=== PATIENT | male | born 1950 | race Caucasian/White ===

== ENCOUNTER 2016-04-22 16:16 | Observation (INO) | payer SELFPAY ==
[2016-04-22] MEDS ORDERED: Sodium Chloride 0.9% 10 ML Syringe FLUSH PRN (16:32)
[2016-04-22] MEDS ORDERED: Albuterol/Ipratropium 3.0-0.5 MG/3 ML Neb Soln NEB ONE (16:35)
[2016-04-22] MEDS ORDERED: Famotidine 20 MG/2 ML SDV IVPUSH ONE (16:36)
[2016-04-22] MEDS ORDERED: methylPREDNISolone Sodium Succinate 125 MG/2 ML SDV IVPUSH ONE (16:36)
[2016-04-22] MEDS ORDERED: Sodium Chloride 0.9% 1,000 ML IV SCH (16:45)
[2016-04-22] MEDS ORDERED: Metoprolol Tartrate 5 MG/5 ML SDV IVPUSH ONE (16:55)
[2016-04-22 17:07] LABS: BASOPHILS PERCENT AUTO 0.2 % (0.2-1.2); EOSINOPHILS PERCENT AUTO 0.1 % (0.0-4.0); HEMATOCRIT 43.7 % (40.0-52.0); HEMOGLOBIN 15.9 g/dL (14.0-18.0); LYMPHOCYTES PERCENT AUTO 7.4 % (25.0-50.0); MEAN CORPUSCULAR HEMOGLOBIN 33.1 pg (26.0-32.0); MEAN CORPUSCULAR HGB CONC 36.4 g/dL (32.0-36.0); MONOCYTES PERCENT AUTO 14.2 % (2.0-11.0); NEUTROPHILS PERCENT AUTO 78.1 % (50.0-80.0); RDW CV 12.4 % (10.0-15.0)
[2016-04-22 17:12] LABS: HCO3 ARTERIAL,ISTAT 28 mmol/L (22-26); O2 SATURATION ARTERIAL,ISTAT 94 % (95-98); PCO2 ARTERIAL,ISTAT 37 mmHG (35-45); PH ARTERIAL,ISTAT 7.487 (7.35-7.45); PO2 ARTERIAL,ISTAT 64 mmHG (80-105); TCO2 ARTERIAL,ISTAT 29 mmol/L (23-27)
--- NOTE | 2016-04-22 17:15 | EDM.PDOC ---
ED HISTORY OF PRESENT ILLNESS - General Chief Complaint: Respiratory Problem Stated Complaint: SOB Time Seen by Provider: 04/22/16 16:22 Source of Information: Reports: Patient, Family, RN, RN notes reviewed History Limitations: Reports: No limitations - History of Present Illness INITIAL COMMENTS - FREE TEXT/NARRATIVE: Patient presents to the ED at [facility] with a 2 week history of worsening SOB, dry cough, and diaphoresis. Patient states he has not seen a health care provider in over 20 years. He denies any medical history. Patient denies any chest pain, headaches, dizziness, or edema. He states "I just feel like I can not get my air in." Patient denies any N/V/D. No focal neurological deficits. Symptom Onset Date: 04/07/16 - Related Data Allergies/ADRs: Allergies Allergy/AdvReac Type Severity Reaction Status Date / Time No Known Allergies Allergy Verified 04/22/16 18:35 Home Meds: Home Meds Multivitamin [Daily Multiple Vitamin] 1 tab PO DAILY 04/22/16 [History] Past Medical History - Past Health History Medical/Surgical History: Denies Medical/Surgical History Social & Family History - Family History Family Medical History: Noncontributory - Tobacco Use Smoking Status *Q: Current Every Day Smoker Tobacco Use Within Last Twelve Months: Cigarettes Smoking Cessation Information Provided To Patient: Patient Refused Second Hand Smoke Exposure: Yes Second Hand Smoke Education Provided: Patient Refused - Tobacco Core Measures Tobacco Use/Smoking Within Last 30 Days: Refused Screening - Caffeine Use Caffeine Use: Reports: Coffee - Alcohol Use Alcohol Use History: Yes Days Per Week of Alcohol Use: 7 Number of Drinks Per Day: 18 Total Drinks Per Week: 126 Date of Last Drink: 04/22/16 Alcohol Use in Last Twelve Months: Yes Alcohol Use Frequency: Daily - Recreational Drug Use Recreational Drug Use: No Drug Use in Last 12 Months: No ED ROS GENERAL - Review of Systems Review Of Systems: See Below Constitutional: Reports: diaphoresis. Denies: fever, chills, weakness Respiratory: Reports: shortness of breath, wheezing, cough Cardiovascular: Reports: Dyspnea on exertion. Denies: Chest pain, Palpitations GI/Abdominal: Denies: Abdominal pain, Diarrhea, Nausea, Vomiting Skin: Reports: diaphoresis Neurological: Denies: dizziness, headache, numbness, paresthesia, tingling ED EXAM, GENERAL - Physical Exam Exam: See Below Exam Limited By: No limitations General Appearance: alert, anxious, mild distress Eye Exam: bilateral eye: EOMI, normal inspection, PERRL Ears: normal external exam, normal canal, hearing grossly normal, normal TMs Ear Exam: bilateral ear: TM normal Throat/Mouth: Normal inspection, Normal oropharynx, No airway compromise Neck: supple Respiratory/Chest: decreased breath sounds, crackles, rhonchi, wheezing Cardiovascular: regular rate, rhythm, no murmur, tachycardia Peripheral Pulses: 2+: radial (L), radial (R) GI/Abdominal: normal bowel sounds, soft, non tender Neurological: alert, oriented Skin Exam: Warm, Intact, Normal color, No rash, Diaphoretic EKG INTERPRETATION EKG Date: 04/22/16 Time: 16:27 Rhythm: NSR Rate (beats/min): 100 [place]: normal P-wave: present QRS: RBBB ST-T: normal QT: normal TN/PQ Interval: 0.20 Comparison: NA - no prior EKG EKG Interpretation Comments: 1. Sinus Tachycardia 2. RBBB 3. Possible inferior infarct - age undetermined Course - Vital Signs Last Recorded V/S: Last Vital Signs Temp 37.1 C 04/22/16 18:34 Pulse 79 04/22/16 18:34 Resp 18 04/22/16 18:34 BP 180/80 H 04/22/16 18:34 Pulse Ox 91 L 04/22/16 18:34 - Orders/Labs/Meds Orders: Active Orders 24 hr Category Date Time Status EKG 12 Lead [EKG Documentation Completion] [RC] STAT Care 04/22/16 16:46 Active RT Aerosol Therapy [RC] ASDIRECTED Care 04/22/16 16:36 Active Chest PE [Ang Chest] [CT] Stat Exams 04/22/16 17:26 Taken Sodium Chloride 0.9% [Normal Saline] 1,000 ml Med 04/22/16 16:45 Active IV ASDIRECTED Sodium Chloride 0.9% [Saline Flush] Med 04/22/16 16:32 Active 10 ml FLUSH ASDIRECTED PRN Peripheral IV Insertion Adult [OM.PC] Routine Oth 04/22/16 16:32 Ordered Medication Orders Sodium Chloride (Normal Saline) 1,000 mls @ 999 mls/hr IV ASDIRECTED [facility] Last Admin: 04/22/16 18:21 Dose: 999 mls/hr Sodium Chloride (Saline Flush) 10 ml FLUSH ASDIRECTED PRN PRN Reason: Keep Vein Open Labs: Laboratory Tests 04/22/16 04/22/16 04/22/16 Range/Units 16:40 16:40 16:40 WBC 12.6 H (4.0-10.0) x10^3/uL RBC 4.80 (4.5-6.0) x10^6/uL Hgb 15.9 (14.0-18.0) g/dL Hct 43.7 (40.0-52.0) % MCV 91.0 (78.0-93.0) fL MCH 33.1 H (26.0-32.0) pg MCHC 36.4 H (32.0-36.0) g/dL RDW Coeff of Natanael 12.4 (10.0-15.0) % Plt Count 180 (130-400) x10^3/uL Neut % (Auto) 78.1 (50.0-80.0) % Lymph % (Auto) 7.4 L (25.0-50.0) % [place] % (Auto) 14.2 H (2.0-11.0) % Eos % (Auto) 0.1 (0.0-4.0) % Baso % (Auto) 0.2 (0.2-1.2) % D-Dimer, Quantitative 0.90 H (<=0.58) mg/LFEU POC ABG pH (7.35-7.45) POC ABG pCO2 (35-45) mmHG POC ABG pO2 (80-105) mmHG POC ABG HCO3 (22-26) mmol/L POC ABG Total CO2 (23-27) mmol/L POC ABG O2 Sat (95-98) % POC ABG Base Excess (-2-3) mmol/L POC FiO2 Sodium 133 L (136-145) mmol/L Potassium 2.7 L* (3.5-5.1) mmol/L Chloride 91 L (98-107) mmol/L Carbon Dioxide 29 (21-32) mmol/L BUN 7 (7-18) mg/dL Creatinine 0.5 L (0.70-1.30) mg/dL Est Cr Clr Drug Dosing TNP Estimated GFR (MDRD) > 60 Glucose 115 H (74-106) mg/dL Calcium 8.8 (8.5-10.1) mg/dL Corrected Calcium 9.44 (8.5-10.1) mg/dL Phosphorus 3.1 (2.6-4.7) mg/dL Magnesium 2.1 (1.8-2.4) mg/dL Total Bilirubin 0.5 (0.2-1.0) mg/dL AST 54 H (15-37) U/L ALT 65 H (16-63) U/L Alkaline Phosphatase 101 (46-116) U/L Creatine Kinase 80 (39-308) U/L Creatine Kinase Index 1.8 (0.0-4.0) % CK-MB (CK-2) 1.4 (0.0-3.6) ng/mL Troponin I < 0.017 (<=0.056) ng/mL B-Natriuretic Peptide 472 H (<=125) pg/mL Total Protein 7.5 (6.4-8.2) g/dL Albumin 3.2 L (3.4-5.0) g/dL Globulin 4.3 Albumin/Globulin Ratio 0.74 Ethyl Alcohol 20 H (0-3) mg/dL 04/22/ Range/Units 17:04 WBC (4.0-10.0) x10^3/uL RBC (4.5-6.0) x10^6/uL Hgb (14.0-18.0) g/dL Hct (40.0-52.0) % MCV (78.0-93.0) fL MCH (26.0-32.0) pg MCHC (32.0-36.0) g/dL RDW Coeff of Natanael (10.0-15.0) % Plt Count (130-400) x10^3/uL Neut % (Auto) (50.0-80.0) % Lymph % (Auto) (25.0-50.0) % [place] % (Auto) (2.0-11.0) % Eos % (Auto) (0.0-4.0) % Baso % (Auto) (0.2-1.2) % D-Dimer, Quantitative (<=0.58) mg/LFEU POC ABG pH 7.487 H (7.35-7.45) POC ABG pCO2 37 (35-45) mmHG POC ABG pO2 64 L (80-105) mmHG POC ABG HCO3 28 H (22-26) mmol/L POC ABG Total CO2 29 H (23-27) mmol/L POC ABG O2 Sat 94 L (95-98) % POC ABG Base Excess 5 H (-2-3) mmol/L POC FiO2 0.21 Sodium (136-145) mmol/L Potassium (3.5-5.1) mmol/L Chloride (98-107) mmol/L Carbon Dioxide (21-32) mmol/L BUN (7-18) mg/dL Creatinine (0.70-1.30) mg/dL Est Cr Clr Drug Dosing Estimated GFR (MDRD) Glucose (74-106) mg/dL Calcium (8.5-10.1) mg/dL Corrected Calcium (8.5-10.1) mg/dL Phosphorus (2.6-4.7) mg/dL Magnesium (1.8-2.4) mg/dL Total Bilirubin (0.2-1.0) mg/dL AST (15-37) U/L ALT (16-63) U/L Alkaline Phosphatase (46-116) U/L Creatine Kinase (39-308) U/L Creatine Kinase Index (0.0-4.0) % CK-MB (CK-2) (0.0-3.6) ng/mL Troponin I (<=0.056) ng/mL B-Natriuretic Peptide (<=125) pg/mL Total Protein (6.4-8.2) g/dL Albumin (3.4-5.0) g/dL Globulin Albumin/Globulin Ratio Ethyl Alcohol (0-3) mg/dL Meds: Medications Generic Name Dose Route Start Last Admin Trade Name Freq PRN Reason Stop Dose Admin Sodium Chloride 1,000 mls @ 999 mls/hr 04/22/16 16:45 04/22/16 18:21 Normal Saline IV 999 mls/hr ASDIRECTED MARILYN Administration Sodium Chloride 10 ml 04/22/16 16:32 Saline Flush FLUSH ASDIRECTED PRN Keep Vein Open Discontinued Medications Generic Name Dose Route Start Last Admin Trade Name Freq PRN Reason Stop Dose Admin Albuterol/Ipratropium 3 ml 04/22/16 16:35 04/22/16 17:39 Duoneb 3.0-0.5 Mg/3 Ml NEB 04/22/16 16:36 3 ml ONETIME ONE Administration Famotidine 20 mg 04/22/16 16:36 04/22/16 17:35 Pepcid IVPUSH 04/22/16 16:37 20 mg ONETIME ONE Administration Potassium Chloride 20 meq/ 50 mls @ 50 mls/hr 04/22/16 17:26 04/22/16 18:21 Premix IV 04/22/16 18:25 50 mls/hr ONETIME ONE Administration Sodium Chloride 100 mls @ 3 mls/sec 04/22/16 18:10 04/22/16 18:15 Normal Saline IV 04/22/16 18:11 3 mls/sec ONETIME ONE Administration Iopamidol 100 ml 04/22/16 18:10 04/22/16 18:15 Isovue-300 (61%) IVPUSH 04/22/16 18:11 100 ml ONETIME ONE Administration Lidocaine HCl 5 ml 04/22/16 17:25 04/22/16 18:26 Xylocaine-Mpf 1% INJECT 04/22/16 17:26 Not Given ONETIME ONE Methylprednisolone Sodium Succinate 125 mg 04/22/16 16:36 04/22/16 17:30 Solu-Medrol IVPUSH 04/22/16 16:37 125 mg ONETIME ONE Administration Metoprolol Tartrate 5 mg 04/22/16 16:55 04/22/16 17:38 Lopressor IVPUSH 04/22/16 16:56 5 mg ONETIME ONE Administration Departure - Departure Time of Disposition: 18:21 Disposition: Refer to Observation Condition: fair Clinical Impression: Acute exacerbation of COPD with asthma, Hypertensive urgency, Acute hypokalemia - Problem List Review Problem List Initiated/Reviewed/Updated: Yes - My Orders Last 24 Hours: My Active Orders 04/22/16 16:32 Sodium Chloride 0.9% [Saline Flush] 10 ml FLUSH ASDIRECTED PRN Peripheral IV Insertion Adult [OM.PC] Routine 04/22/16 16:36 RT Aerosol Therapy [RC] ASDIRECTED 04/22/16 16:45 Sodium Chloride 0.9% [Normal Saline] 1,000 ml IV ASDIRECTED 04/22/16 16:46 EKG 12 Lead [EKG Documentation Completion] [RC] STAT 04/22/16 17:26 Chest PE [Ang Chest] [CT] Stat - Assessment/Plan Admission H&P: Please use this note as an admission H&P Last 24 Hours: My Active Orders 04/22/16 16:32 Sodium Chloride 0.9% [Saline Flush] 10 ml FLUSH ASDIRECTED PRN Peripheral IV Insertion Adult [OM.PC] Routine 04/22/16 16:36 RT Aerosol Therapy [RC] ASDIRECTED 04/22/16 16:45 Sodium Chloride 0.9% [Normal Saline] 1,000 ml IV ASDIRECTED 04/22/16 16:46 EKG 12 Lead [EKG Documentation Completion] [RC] STAT 04/22/16 17:26 Chest PE [Ang Chest] [CT] Stat Plan: Admit observation for acute COPD exacerbation; hypertension; hypoxia
[2016-04-22] MEDS ORDERED: Potassium Chloride 20 MEQ in Premix Bag 1 BAG IV ONE ×2 (17:26→19:14)
[2016-04-22 17:30] LABS: A/G RATIO 0.74; ALBUMIN 3.2 g/dL (3.4-5.0); ALKALINE PHOSPHATASE 101 U/L (46-116); B-TYPE NATRIURETIC PEPTIDE,BNP 472 pg/mL (<=125); BILIRUBIN TOTAL 0.5 mg/dL (0.2-1.0); CALCIUM 8.8 mg/dL (8.5-10.1); CHLORIDE,CL 91 mmol/L (98-107); CORRECTED CALCIUM 9.44 mg/dL (8.5-10.1); CREATININE 0.5 mg/dL (0.70-1.30); ESTIMATED GFR > 60; GLUCOSE RANDOM 115 mg/dL (74-106); MAGNESIUM 2.1 mg/dL (1.8-2.4); PHOSPHORUS 3.1 mg/dL (2.6-4.7)
[2016-04-22 17:31] LABS: CKMB 1.4 ng/mL (0.0-3.6); TROPONIN I < 0.017 ng/mL (<=0.056)
[2016-04-22] MEDS ORDERED: Sodium Chloride 0.9% 100 ML IV ONE (18:10)
[2016-04-22] MEDS ORDERED: Iopamidol 612 MG/ML 100 ML Bottle IVPUSH ONE (18:10)
[2016-04-22] MEDS ORDERED: Flu Vaccine 2016-17(36Mos+)/PF 60 MCG/0.5 ML Syringe IM ONE (18:46)
--- NOTE | 2016-04-22 18:49 | PCM.HP ---
H&P History of Present Illness - General Date of Service: 04/22/16 Admit Problem/Dx: Admission Diagnosis/Problem Admission Diagnosis/Problem COPD, Severe chronic obstructive pulmonary disease Source of Information: Patient, Family, RN, RN notes reviewed History Limitations: Reports: No limitations - History of Present Illness Initial Comments - Free Text/Narative: Patient was brought to the ED at [facility] today with a 2 week history of worsening shortness of breath with a dry non-productive cough. Patient states he has not seen a healthcare provider in over 25 years. He admits to smoking 1 pack a day and drinks alcohol on a daily basis. Patient states he only takes a multivitamin daily. He denies any focal neurological deficits. He denies any headaches or dizziness. Denies any chest pain. Patient states "I just can not get my air." Patient states he does have BAKER. Denies any palpitations. No edema. Patient states he has felt some nausea, but no vomiting or diarrhea. Onset of Symptoms: Reports: gradual Symptom Onset Date: 04/07/16 Duration of Symptoms: Reports: Getting worse, Recurring - Related Data Allergies/Adverse Reactions: Allergies Allergy/AdvReac Type Severity Reaction Status Date / Time No Known Allergies Allergy Verified 04/22/16 18:35 Home Medications: Home Meds Multivitamin [Daily Multiple Vitamin] 1 tab PO DAILY 04/22/16 [History] Past Medical History - Past Health History Medical/Surgical History: Denies Medical/Surgical History Social & Family History - Family History Family Medical History: Noncontributory - Tobacco Use Smoking Status *Q: Current Every Day Smoker Years of Tobacco use: 50 Packs/Tins Daily: 0.5 Second Hand Smoke Exposure: Yes - Caffeine Use Caffeine Use: Reports: Coffee - Alcohol Use Days Per Week of Alcohol Use: 7 Number of Drinks Per Day: 18 Total Drinks Per Week: 126 Date of Last Drink: 04/22/16 - Recreational Drug Use Recreational Drug Use: No Drug Use in Last 12 Months: No H&P Review of Systems - Review of Systems: Review Of Systems: See Below General: Reports: diaphoresis. Denies: fever, chills, weakness Pulmonary: Reports: shortness of breath, wheezing, cough. Denies: hemoptysis Cardiovascular: Reports: dyspnea on exertion. Denies: chest pain, palpitations Gastrointestinal: Reports: Nausea. Denies: Abdominal pain, Diarrhea, Vomiting Skin: Reports: diaphoresis Neurological: Denies: dizziness, headache, numbness, paresthesia, tingling Exam - Exam Exam: See Below - Vital Signs Vital Signs: Last Vital Signs Temp 37.1 C 04/22/16 18:34 Pulse 79 04/22/16 18:34 Resp 18 04/22/16 18:34 BP 180/80 H 04/22/16 18:34 Pulse Ox 91 L 04/22/16 18:34 Weight: 86.545 kg - Exam General: alert, oriented HEENT: Mucosa moist & pink Neck: supple Lungs: Decreased breath sounds, Crackles, Wheezing Cardiovascular: regular rate, regular rhythm, normal S1, normal S2 Abdomen: normal bowel sounds, soft. No: distention Extremities: normal inspection, normal pulses Skin: warm, dry, intact Neuro Extensive - Mental Status: alert, oriented x3 - Patient Data Result Diagrams: 04/22/16 16:40 04/22/16 16:40 *Q Meaningful Use (ADM) - VTE *Q VTE Criteria *Q: 6 - Stroke *Q Stroke Criteria *Q: - AMI *Q AMI Criteria *Q: - Problem List (1) Acute exacerbation of COPD with asthma SNOMED Code(s): 861335053 ICD Code: J44.1 - CHRONIC OBSTRUCTIVE PULMONARY DISEASE W (ACUTE) EXACERBATION; J45.901 - UNSPECIFIED ASTHMA WITH (ACUTE) EXACERBATION Status: Acute Priority: High Current Visit: Yes Onset Date: ~04/22/16 (2) Hypertensive urgency SNOMED Code(s): 876074279 ICD Code: I16.0 - HYPERTENSIVE URGENCY Status: Acute Priority: Medium Current Visit: Yes Onset Date: ~04/22/16 (3) Acute hypokalemia SNOMED Code(s): 95719959 ICD Code: E87.6 - HYPOKALEMIA Status: Acute Priority: Medium Current Visit: Yes Onset Date: ~04/22/16 Problem List Initiated/Reviewed/Updated: Yes Orders Last 24hrs: Medication Orders Sodium Chloride (Normal Saline) 1,000 mls @ 999 mls/hr IV ASDIRECTED MARILYN Last Admin: 04/22/16 18:21 Dose: 999 mls/hr Sodium Chloride (Saline Flush) 10 ml FLUSH ASDIRECTED PRN PRN Reason: Keep Vein Open Assessment/Plan Comment:: 1. Admit observation for new onset COPD with acute asthma exacerbation, hypertensive urgency, and hypokalemia 2. Will give IV anti-hypertensive until blood pressure under better control, then switch to PO 3. Duonebs and IV solumedrol 4. AM fasting labs 5. Supplement potassium IV; recheck in AM 6. Anticipate <48 stay
[2016-04-22] MEDS ORDERED: Zolpidem 5 MG Tab PO PRN (18:57)
[2016-04-22] MEDS ORDERED: Docusate Sodium 100 MG Cap PO PRN (18:57)
[2016-04-22] MEDS ORDERED: Ondansetron 4 MG Tab.DIS PO PRN (18:57)
[2016-04-22] MEDS ORDERED: Acetaminophen 325 MG Tab PO PRN (18:57)
[2016-04-22] MEDS ORDERED: Albuterol/Ipratropium 3.0-0.5 MG/3 ML Neb Soln NEB PRN (19:05)
[2016-04-22] MEDS ORDERED: LORazepam 2 MG/ML MDV IVPUSH PRN (19:11)
[2016-04-22] MEDS ORDERED: Lidocaine 1% PF 2 ML SDV INJECT ONE (19:14)
[2016-04-22] MEDS ORDERED: Metoprolol Succinate 25 MG Tab.ER PO SCH (19:15)
[2016-04-22] MEDS ORDERED: Pneumococcal 23-Valent Conjugate Vaccine 0.5 ML Syringe IM ONE (19:16)
[2016-04-22] MEDS ORDERED: Azithromycin 500 MG in Sodium Chloride 0.9% 250 ML IV SCH (20:00)
[2016-04-22] MEDS: Nicotine 21 MG/24 Hr Patch TRDERM SCH (20:35)
[2016-04-22] MEDS: Sodium Chloride 0.9% 1,000 ML IV SCH (22:40)
[2016-04-22] MEDS: Albuterol/Ipratropium 3.0-0.5 MG/3 ML Neb Soln NEB SCH (23:12)
[2016-04-23] MEDS: Albuterol/Ipratropium 3.0-0.5 MG/3 ML Neb Soln NEB SCH ×4 (04:51→13:59)
[2016-04-23 07:48] LABS: HEMATOCRIT 45.2 % (40.0-52.0); HEMOGLOBIN 15.9 g/dL (14.0-18.0); MEAN CORPUSCULAR HEMOGLOBIN 32.9 pg (26.0-32.0); MEAN CORPUSCULAR HGB CONC 35.2 g/dL (32.0-36.0); MEAN CORPUSCULAR VOLUME 93.6 fL (78.0-93.0); RDW CV 12.5 % (10.0-15.0); RED BLOOD CELL COUNT 4.83 x10^6/uL (4.5-6.0)
[2016-04-23] MEDS ORDERED: methylPREDNISolone Sodium Succinate 125 MG/2 ML SDV IVPUSH SCH (08:00)
[2016-04-23] MEDS ORDERED: Metoprolol Succinate 50 MG Tab.ER PO SCH (08:00)
[2016-04-23] MEDS ORDERED: Multivitamins with Iron/Calcium/Folic Acid/Minerals Tab PO SCH (08:00)
[2016-04-23 08:05] LABS: HEMOGLOBIN A1C 5.3 % (4.5-6.2)
[2016-04-23 08:16] LABS: BAND PERCENT MAN 5 % (0-6); METAMYELOCYTE PERCENT MAN 1 % (0); SEG NEUTROPHILS PERCENT MAN 71 % (50-80); TOTAL CELLS COUNTED 100
[2016-04-23 08:18] LABS: CALCIUM 8.8 mg/dL (8.5-10.1); CHLORIDE,CL 98 mmol/L (98-107); CHOLESTEROL HDL 66 mg/dL (40-59); CHOLESTEROL LDL CALCULATED 124 mg/dL (0-130); CREATININE 0.5 mg/dL (0.70-1.30); EST CRCL DRUG DOSING (CG) 139.54 mL/min; ESTIMATED GFR > 60; GLUCOSE RANDOM 124 mg/dL (74-106); TRIGLYCERIDES 87 mg/dL (0-149)
[2016-04-23] MEDS: Nicotine 21 MG/24 Hr Patch TRDERM SCH (08:18)
[2016-04-23 08:33] LABS: APPEARANCE,URINE CLEAR (CLEAR); BILIRUBIN,URINE NEGATIVE (NEGATIVE); GLUCOSE,URINE NEGATIVE (NEGATIVE); KETONES,URINE 40 mg/dL (NEGATIVE); LEUKOCYTE ESTERASE,URINE NEGATIVE (NEGATIVE); NITRITE,URINE NEGATIVE (NEGATIVE); OCCULT BLOOD,URINE TRACE-INTACT (NEGATIVE); PH,URINE 8.5 (5.0-8.0); PROTEIN,URINE 30 mg/dL (NEGATIVE)
[2016-04-23 08:45] LABS: BACTERIA,URINE FEW /HPF (NEGATIVE); MUCUS,URINE FEW /LPF (NEGATIVE); RBC,URINE 0-5 /HPF (NOT SEEN); WBC,URINE 0-5 /HPF (NOT SEEN)
[2016-04-23] MEDS ORDERED: Potassium Chloride 20 MEQ in Premix Bag 1 BAG IV ONE ×2 (11:07→13:07)
[2016-04-23] MEDS ORDERED: Lidocaine 1% PF 2 ML SDV INJECT ONE ×2 (11:08→13:07)
[2016-04-23] MEDS ORDERED: Pravastatin 20 MG Tab PO SCH (11:15)
--- NOTE | 2016-04-23 12:39 | PCM.DCSUM1 ---
Discharge Summary - Hospital Course HPI Initial Comments: Patient was brought to the ED at [facility] yesterday with a 2 week history of worsening shortness of breath with a dry non-productive cough. Patient states he has not seen a healthcare provider in over 25 years. He admits to smoking 1 pack a day and drinks alcohol on a daily basis. Patient states he only takes a multivitamin daily. He denies any focal neurological deficits. He denies any headaches or dizziness. Denies any chest pain. Patient states "I just can not get my air." Patient states he does have BAKER. Denies any palpitations. No edema. Patient states he has felt some nausea, but no vomiting or diarrhea. - Discharge Data Discharge Date: 04/23/16 Discharge Disposition: Home, Self-Care 01 Condition: Good - Discharge Diagnosis/Problem(s) (1) Acute exacerbation of COPD with asthma SNOMED Code(s): 447619560 ICD Code: J44.1 - CHRONIC OBSTRUCTIVE PULMONARY DISEASE W (ACUTE) EXACERBATION; J45.901 - UNSPECIFIED ASTHMA WITH (ACUTE) EXACERBATION Status: Acute Priority: High Current Visit: Yes Onset Date: ~04/22/16 (2) Hypertensive urgency SNOMED Code(s): 184077844 ICD Code: I16.0 - HYPERTENSIVE URGENCY Status: Resolved Priority: Medium Current Visit: Yes Onset Date: ~04/22/16 (3) Acute hypokalemia SNOMED Code(s): 52501292 ICD Code: E87.6 - HYPOKALEMIA Status: Resolved Priority: Medium Current Visit: Yes Onset Date: ~04/22/16 (4) Mixed hyperlipidemia SNOMED Code(s): 475633139 ICD Code: E78.2 - MIXED HYPERLIPIDEMIA Status: Chronic Priority: Medium Current Visit: Yes (5) Hypothyroidism (acquired) SNOMED Code(s): 071132229 ICD Code: E03.9 - HYPOTHYROIDISM, UNSPECIFIED Status: Chronic Current Visit: Yes - Patient Summary/Data Operative Procedure(s) Performed: None Consults: Consultations 04/22/16 18:57 Consult to Chief Controller Tower [CONS] Routine 04/22/16 19:18 Consult to Respiratory Therapy [Respiratory Care Assess and Treatment] [CONS] Routine Labs Pending at D/C: None Planned Operative Procedure(s) after DC: None Hospital Course: Patient did fairly well during his short hospital stay. His breathing improved and wheezing has almost resolved. Patient's blood pressure remained elevated, therefor he was started on Metoprolol and Amlodipine. He did require Q4H albuterol, which helped tremendously for his SOB/wheezing. No fevers. Patient was started on Azithromycin per GOLD guidelines. IV Solumedrol also helped with wheezing. Patient slept well. Tolerated PO diet without any problems. No troubles with urination. - Patient Instructions Diet: Heart Healthy Diet, Low Sodium, No Alcoholic Beverages Activity: Rest and Relax Today Showering/Bathing: May Shower Other/Special Instructions: Return for worseing SOB/wheezing; chest pain; or for any other concerns - Discharge Plan Prescriptions/Med Rec: Albuterol Sulfate [Proventil Hfa] 1 - 2 puff IH Q4HR PRN #1 hfa.aer.ad PRN Reason: Shortness Of Breath Levothyroxine Sodium [Synthroid] 25 mcg PO ACBREAKFAST #30 tablet Metoprolol Succinate [Toprol XL] 50 mg PO DAILY #30 tab.er Pravastatin [Pravachol] 20 mg PO DAILY #30 tablet Umeclidinium Brm/Vilanterol Tr [Anoro Ellipta 62.5-25 Mcg INH] 1 inhalation IH DAILY #1 disk.w.dev amLODIPine Besylate [Norvasc] 2.5 mg PO DAILY #30 tablet Home Medications: Home Meds Multivitamin [Daily Multiple Vitamin] 1 tab PO DAILY 04/22/16 [History] Albuterol Sulfate [Proventil Hfa] 1 - 2 puff IH Q4HR PRN #1 hfa.aer.ad 04/23/16 [Rx] Levothyroxine Sodium [Synthroid] 25 mcg PO ACBREAKFAST #30 tablet 04/23/16 [Rx] Metoprolol Succinate [Toprol XL] 50 mg PO DAILY #30 tab.er 04/23/16 [Rx] Pravastatin [Pravachol] 20 mg PO DAILY #30 tablet 04/23/16 [Rx] Umeclidinium Brm/Vilanterol Tr [Anoro Ellipta 62.5-25 Mcg INH] 1 inhalation IH DAILY #1 disk.w.dev 04/23/16 [Rx] amLODIPine Besylate [Norvasc] 2.5 mg PO DAILY #30 tablet 04/23/16 [Rx] Patient Handouts: Chronic Obstructive Pulmonary Disease, [id number], Hypertension, [id number], Dyslipidemia, Hypothyroidism Forms: ED Department Discharge - Discharge Summary/Plan Comment DC Time >30 min.: Yes Discharge Summary/Plan Comment: 1. Discharge home today 2. New discharge medications for home: Metoprolol, Pravastatin, Levothyroxine, Anoro Ellipta (COPD), Albuterol HFA, Amlodipine 3. Handouts given on all new medications and thoroughly discussed with patient 4. Patient will be sent home with medications until he can get to his local pharmacy 5. Return to clinic/ED if symptoms of SOB/wheezing return or for chest pain or any other concerns 6. Make an appointment to establish care with a provider to follow your chronic medical problems 7. Recommend full PFTs in the near future to establish a baseline and guide treatment; would consider Pulmonary Rehab program 8. Start ASA 81 mg daily - General Info Date of Service: 04/23/16 Admission Dx/Problem (Free Text: Admission Diagnosis/Problem Admission Diagnosis/Problem COPD, Severe chronic obstructive pulmonary disease Functional Status: Reports: pain controlled, tolerating diet, ambulating, urinating Numeric/FACES Score: 0 - Review of Systems General: Reports: no symptoms. Denies: fever, weakness, chills Pulmonary: Reports: no symptoms, cough. Denies: shortness of breath, hemoptysis Cardiovascular: Reports: no symptoms. Denies: chest pain, palpitations Gastrointestinal: Reports: No symptoms. Denies: Abdominal pain, Nausea, Vomiting Skin: Reports: no symptoms Neurological: Reports: no symptoms. Denies: dizziness, headache - Patient Data Vitals - Most Recent: Last Vital Signs Temp 37.4 C 04/23/16 09:39 Pulse 86 04/23/16 09:39 Resp 20 04/23/16 09:39 BP 177/79 H 04/23/16 08:17 Pulse Ox 94 L 04/23/16 09:39 Weight - Most Recent: 86.545 kg I&O - Last 24 hours: Intake & Output 04/22/16 04/23/16 04/23/16 22:59 06:59 14:59 Intake Total 1080 Balance 1080 Lab Results - Last 24 hrs: Laboratory Results - last 24 hr 04/23/16 04/23/16 04/23/16 Range/Units 07:18 07:18 07:18 WBC 9.9 (4.0-10.0) x10^3/uL RBC 4.83 (4.5-6.0) x10^6/uL Hgb 15.9 (14.0-18.0) g/dL Hct 45.2 (40.0-52.0) % MCV 93.6 H (78.0-93.0) fL MCH 32.9 H (26.0-32.0) pg MCHC 35.2 (32.0-36.0) g/dL RDW Coeff of Naatnael 12.5 (10.0-15.0) % Plt Count 196 (130-400) x10^3/uL Add Manual Diff Yes Neutrophils % (Manual) 71 (50-80) % Band Neutrophils % 5 (0-6) % Lymphocytes % (Manual) 22 L (25-50) % Monocytes % (Manual) 1 L (2-11) % Metamyelocytes % 1 H (0) % Platelet Estimate Adequate Sodium 139 (136-145) mmol/L Potassium 3.1 L (3.5-5.1) mmol/L Chloride 98 (98-107) mmol/L Carbon Dioxide 32 (21-32) mmol/L BUN 7 (7-18) mg/dL Creatinine 0.5 L (0.70-1.30) mg/dL Est Cr Clr Drug Dosing 139.54 mL/min Estimated GFR (MDRD) > 60 Glucose 124 H (74-106) mg/dL Hemoglobin A1c 5.3 (4.5-6.2) % Calcium 8.8 (8.5-10.1) mg/dL Triglycerides 87 (0-149) mg/dL Cholesterol 207 H (0-199) mg/dL LDL Cholesterol, Calc 124 (0-130) mg/dL HDL Cholesterol 66 H (40-59) mg/dL TSH, Ultra Sensitive 0.340 L (0.358-3.74) uIU/mL Urine Color (YELLOW) Urine Appearance (CLEAR) Urine pH (5.0-8.0) Ur Specific [place] Urine Protein (NEGATIVE) mg/dL Urine Glucose (UA) (NEGATIVE) mg/dL Urine Ketones (NEGATIVE) mg/dL Urine Occult Blood (NEGATIVE) Urine Nitrite (NEGATIVE) Urine Bilirubin (NEGATIVE) Urine Urobilinogen (0.2) EU/dL Ur Leukocyte Esterase (NEGATIVE) Urine RBC (NOT SEEN) /HPF Urine WBC (NOT SEEN) /HPF Ur Squamous Epith Cells (NEGATIVE) /HPF Urine Bacteria (NEGATIVE) /HPF Urine Mucus (NEGATIVE) /LPF 04/23/16 Range/Units 08:10 WBC (4.0-10.0) x10^3/uL RBC (4.5-6.0) x10^6/uL Hgb (14.0-18.0) g/dL Hct (40.0-52.0) % MCV (78.0-93.0) fL MCH (26.0-32.0) pg MCHC (32.0-36.0) g/dL RDW Coeff of Natanael (10.0-15.0) % Plt Count (130-400) x10^3/uL Add Manual Diff Neutrophils % (Manual) (50-80) % Band Neutrophils % (0-6) % Lymphocytes % (Manual) (25-50) % Monocytes % (Manual) (2-11) % Metamyelocytes % (0) % Platelet Estimate Sodium (136-145) mmol/L Potassium (3.5-5.1) mmol/L Chloride (98-107) mmol/L Carbon Dioxide (21-32) mmol/L BUN (7-18) mg/dL Creatinine (0.70-1.30) mg/dL Est Cr Clr Drug Dosing mL/min Estimated GFR (MDRD) Glucose (74-106) mg/dL Hemoglobin A1c (4.5-6.2) % Calcium (8.5-10.1) mg/dL Triglycerides (0-149) mg/dL Cholesterol (0-199) mg/dL LDL Cholesterol, Calc (0-130) mg/dL HDL Cholesterol (40-59) mg/dL TSH, Ultra Sensitive (0.358-3.74) uIU/mL Urine Color Yellow (YELLOW) Urine Appearance Clear (CLEAR) Urine pH 8.5 H (5.0-8.0) Ur Specific [place] 1.020 Urine Protein 30 H (NEGATIVE) mg/dL Urine Glucose (UA) Negative (NEGATIVE) mg/dL Urine Ketones 40 H (NEGATIVE) mg/dL Urine Occult Blood Trace-intact H (NEGATIVE) Urine Nitrite Negative (NEGATIVE) Urine Bilirubin Negative (NEGATIVE) Urine Urobilinogen 4.0 H (0.2) EU/dL Ur Leukocyte Esterase Negative (NEGATIVE) Urine RBC 0-5 (NOT SEEN) /HPF Urine WBC 0-5 (NOT SEEN) /HPF Ur Squamous Epith Cells Not seen (NEGATIVE) /HPF Urine Bacteria Few H (NEGATIVE) /HPF Urine Mucus Few H (NEGATIVE) /LPF Med Orders - Current: Current Medications Acetaminophen (Tylenol) 650 mg PO Q4H PRN PRN Reason: Pain (Mild 1-3)/fever Albuterol/Ipratropium (Duoneb 3.0-0.5 Mg/3 Ml) 3 ml NEB Q2H PRN PRN Reason: Wheezing Last Admin: 04/22/16 20:53 Dose: 3 ml Albuterol/Ipratropium (Duoneb 3.0-0.5 Mg/3 Ml) 3 ml NEB Q4HRRT [facility] Last Admin: 04/23/16 10:36 Dose: 3 ml Diazepam (Valium) 2 mg IVPUSH Q2H PRN PRN Reason: Anxiety Docusate Sodium (Colace) 100 mg PO BID PRN PRN Reason: Constipation Sodium Chloride (Normal Saline) 1,000 mls @ 75 mls/hr IV ASDIRECTED [facility] Last Admin: 04/22/16 22:40 Dose: 75 mls/hr Azithromycin 500 mg/ Sodium (Chloride) 250 mls @ 250 mls/hr IV Q24H [facility] Last Admin: 04/22/16 22:41 Dose: 250 mls/hr Potassium Chloride 20 meq/ (Premix) 50 mls @ 25 mls/hr IV ONETIME ONE Stop: 04/23/16 13:06 Last Admin: 04/23/16 11:35 Dose: 25 mls/hr Potassium Chloride 20 meq/ (Premix) 50 mls @ 25 mls/hr IV ONETIME ONE Stop: 04/23/16 15:06 Lidocaine HCl (Xylocaine-Mpf 1%) 2 ml INJECT ONETIME ONE Stop: 04/23/16 13:08 Lorazepam (Ativan) 1 mg IVPUSH Q2H PRN PRN Reason: Agitation Methylprednisolone Sodium Succinate (Solu-Medrol) 125 mg IVPUSH DAILY [facility] Last Admin: 04/23/16 08:17 Dose: 125 mg Metoprolol Succinate (Toprol Xl) 50 mg PO DAILY [facility] Last Admin: 04/23/16 08:17 Dose: 50 mg Multivitamins/Minerals (Thera M Plus) 1 tab PO DAILY [facility] Last Admin: 04/23/16 08:21 Dose: 1 tab Nicotine (Habitrol) 21 mg TRDERM DAILY [facility] Last Admin: 04/23/16 08:18 Dose: 21 mg Ondansetron HCl (Zofran Odt) 8 mg PO Q6H PRN PRN Reason: nausea, able to take PO Pravastatin Sodium (Pravachol) 20 mg PO DAILY [facility] Last Admin: 04/23/16 11:35 Dose: 20 mg Sodium Chloride (Saline Flush) 10 ml FLUSH ASDIRECTED PRN PRN Reason: Keep Vein Open Last Admin: 04/22/16 20:38 Dose: 10 ml Zolpidem Tartrate (Ambien) 10 mg PO BEDTIME PRN PRN Reason: Sleep Discontinued Medications Albuterol/Ipratropium (Duoneb 3.0-0.5 Mg/3 Ml) 3 ml NEB ONETIME ONE Stop: 04/22/16 16:36 Last Admin: 04/22/16 17:39 Dose: 3 ml Famotidine (Pepcid) 20 mg IVPUSH ONETIME ONE Stop: 04/22/16 16:37 Last Admin: 04/22/16 17:35 Dose: 20 mg Sodium Chloride (Normal Saline) 1,000 mls @ 999 mls/hr IV ASDIRECTED [facility] Last Admin: 04/22/16 18:21 Dose: 999 mls/hr Potassium Chloride 20 meq/ (Premix) 50 mls @ 50 mls/hr IV ONETIME ONE Stop: 04/22/16 18:25 Last Admin: 04/22/16 18:21 Dose: 50 mls/hr Sodium Chloride (Normal Saline) 100 mls @ 3 mls/sec IV ONETIME ONE Stop: 04/22/16 18:11 Last Admin: 04/22/16 18:15 Dose: 3 mls/sec Potassium Chloride 20 meq/ (Premix) 50 mls @ 25 mls/hr IV ONETIME ONE Stop: 04/22/16 21:13 Last Admin: 04/22/16 20:38 Dose: 25 mls/hr Influenza Virus Vaccine (Fluzone/Fluarix 2016- Vaccine) 60 mcg IM .ONCE ONE Stop: 04/22/16 18:47 Iopamidol (Isovue-300 (61%)) 100 ml IVPUSH ONETIME ONE Stop: 04/22/16 18:11 Last Admin: 04/22/16 18:15 Dose: 100 ml Lidocaine HCl (Xylocaine-Mpf 1%) 5 ml INJECT ONETIME ONE Stop: 04/22/16 17:26 Last Admin: 04/22/16 18:26 Dose: Not Given Lidocaine HCl (Xylocaine-Mpf 1%) 2 ml INJECT ONETIME ONE Stop: 04/22/16 19:15 Last Admin: 04/22/16 20:38 Dose: 2 ml Lidocaine HCl (Xylocaine-Mpf 1%) 2 ml INJECT ONETIME ONE Stop: 04/23/16 11:09 Last Admin: 04/23/16 11:35 Dose: 2 ml Methylprednisolone Sodium Succinate (Solu-Medrol) 125 mg IVPUSH ONETIME ONE Stop: 04/22/16 16:37 Last Admin: 04/22/16 17:30 Dose: 125 mg Metoprolol Succinate (Toprol Xl) 25 mg PO DAILY [facility] Last Admin: 04/22/16 20:39 Dose: 25 mg Metoprolol Tartrate (Lopressor) 5 mg IVPUSH ONETIME ONE Stop: 04/22/16 16:56 Last Admin: 04/22/16 17:38 Dose: 5 mg Pneumococcal Polyvalent Vaccine (Pneumovax 23) 25 mcg IM .ONCE ONE Stop: 04/22/16 19:17 - Exam General: Reports: alert, oriented, cooperative, no acute distress HEENT: Reports: Pupils equal, Pupils reactive, EOMI, Mucous membr. moist/pink Neck: Reports: supple Lungs: Reports: Decreased breath sounds, Wheezing Cardiovascular: Reports: regular rate, regular rhythm, no murmurs Abdomen: Reports: bowel sounds present, soft, no tenderness, no distension Extremities: Reports: no edema Skin: Reports: warm, dry, intact Neurological: Reports: no new focal deficit, normal speech *Q Meaningful Use (DIS) - VTE *Q VTE Criteria *Q: - Stroke *Q Stroke Criteria *Q: - AMI *Q AMI Criteria *Q:
[2016-04-23] MEDS: Sodium Chloride 0.9% 1,000 ML IV SCH (13:30)
[2016-04-23 14:15] VITALS: BP 173/83
== END 2016-04-23 16:05 | disposition home or self-care (01) ==
LOC: VM.ED 16:16 → VM.MS 18:23
PROVIDERS: ADMIT Nurse Practitioner Family; ATTEND Nurse Practitioner Family
DX: J44.1 Chronic obstructive pulmonary disease with (acute) exacerbation (principal); E78.2 Mixed hyperlipidemia; E03.9 Hypothyroidism, unspecified; F17.210 Nicotine dependence, cigarettes, uncomplicated; Z79.899 Other long term (current) drug therapy
CPT/HCPCS: 36415; 36600; 71275; 80048; 80053; 80061; 81001; 82550; 82553; 82803; 83036; 83735; 83880; 84100; 84439; 84443; 84484; 85025; 85379; 93005; 94640; 94760; 96374; 96375; 99285; A9270; G0480; J0456; J2930; J3480; J7030; J7050; Q9967; 90686; 96361; 96365; 96366; 96367; 96376; 99284-GF; G0378; J3490; S0028

== ENCOUNTER 2017-09-15 03:02 | Emergency (ER) | payer MEDICARE ==
[2017-09-15 03:06] VITALS: BP 172/76
[2017-09-15] MEDS ORDERED: Diphtheria,Pertussis(Acell),Tetanus Vaccine 0.5 ML Syringe IM ONE (03:20)
--- NOTE | 2017-09-15 03:25 | EDM.PDOC ---
ED HPI GENERAL MEDICAL PROBLEM - General Chief Complaint: Laceration Stated Complaint: laceration Time Seen by Provider: 09/15/17 03:02 Source of Information: Reports: Patient History Limitations: Reports: Intoxication - History of Present Illness INITIAL COMMENTS - FREE TEXT/NARRATIVE: Patient has brought into the emergency department tonight with complaints of a laceration to the back of the head. 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 He been drinking for a few hours and was being transported home by a sober city route driver. He misstepped when he was getting out of the golf cart and fell backwards hitting the back of his head. He denies loss of consciousness individuals that were with him can't confirm this and state that he has been alert and oriented the entire time patient denies any pain discomfort minimal bleeding patient use direct pressure prior to arrival. The bleeding to stop. Onset: Sudden Severity: Mild Improves with: Reports: None Worsens with: Reports: None - Related Data Allergies Allergy/AdvReac Type Severity Reaction Status Date / Time No Known Allergies Allergy Verified 09/15/17 03:06 Home Meds: Home Meds Multivitamin [Daily Multiple Vitamin] 1 tab PO DAILY 04/22/16 [History] Past Medical History - Past Health History Medical/Surgical History: Denies Medical/Surgical History Psychiatric History: Reports: Addiction - Past Surgical History HEENT Surgical History: Reports: Other (See Below) Social & Family History - Family History Family Medical History: Noncontributory - Tobacco Use Smoking Status *Q: Former Smoker Used Tobacco, but Quit: Yes Month/Year Tobacco Last Used: ? - Caffeine Use Caffeine Use: Reports: Coffee ED ROS GENERAL - Review of Systems Review Of Systems: See Below Constitutional: Reports: No Symptoms HEENT: Reports: No Symptoms Respiratory: Reports: No Symptoms Cardiovascular: Reports: No Symptoms Endocrine: Reports: No Symptoms GI/Abdominal: Reports: No Symptoms : Reports: No Symptoms Musculoskeletal: Reports: No Symptoms Skin: Reports: No Symptoms Neurological: Reports: No Symptoms Psychiatric: Reports: No Symptoms Hematologic/Lymphatic: Reports: No Symptoms Immunologic: Reports: No Symptoms ED EXAM, SKIN/RASH Exam: See Below Exam Limited By: No Limitations General Appearance: Alert, WD/WN, No Apparent Distress Head: Atraumatic, Other Neck: Normal Inspection, Supple, Non-Tender Respiratory/Chest: No Respiratory Distress, Lungs Clear, No Accessory Muscle Use Cardiovascular: Normal Peripheral Pulses, Regular Rate, Rhythm Extremities: Normal Inspection, Normal Range of Motion Neurological: Alert, Oriented, Normal Reflexes, No Motor/Sensory Deficits Psychiatric: Normal Affect, Normal Mood Skin: Warm, Dry, Intact, Normal Color Location, Skin: Head Characteristics: Fine, Linear Associated features: No: Warmth, Tenderness, Swelling, Induration, Scaling ED SKIN PROCEDURES - Laceration/Wound Repair Posterior Midline Head Lac/Wound length In cm: 4 Appearance: Subcutaneous, Linear Distal NVT: Neuro & Vascular Intact, No Tendon Injury Skin Prep: Chlorhexidine (Hibiciens), Saline, Sterile Drape Exploration/Debridement/Repair: Wound Explored Closed with: Hakan # of Sutures: 11 Sterile Dressing Applied: Nurse Tetanus Status Addressed: Yes Complications: No Course - Vital Signs Last Recorded V/S: Last Vital Signs Temp 35.8 C 09/15/17 03:04 Pulse 99 09/15/17 03:04 Resp 18 09/15/17 03:04 BP 172/76 H 09/15/17 03:04 Pulse Ox 97 09/15/17 03:04 - Orders/Labs/Meds Orders: Active Orders 24 hr Category Date Time Status Vaccines to be Administered [RC] PER UNIT ROUTINE Care 09/15/17 03:20 Active Meds: Medications Discontinued Medications Generic Name Dose Route Start Last Admin Trade Name Alvin PRN Reason Stop Dose Admin Diphtheria/Tetanus/Acell Pertussis 0.5 ml 09/15/17 03:20 09/15/17 03:24 Adacel IM 09/15/17 03:21 0.5 ml .ONCE ONE Administration Departure - Departure Time of Disposition: 03:40 Disposition: Home, Self-Care 01 Condition: Good Clinical Impression: Laceration - Discharge Information Instructions: Laceration Care, Adult, [id number], Stitches, Hakan, or Adhesive Wound Closure, [id number] Forms: ED Department Discharge Additional Instructions: 1. Keep the area clean and dry 2. Follow up in 10 days for removal of hakan 3. Do not soak area in water 4. Keep the area covered when working in soiled area 5. Return or Follow up with signs of infection - My Orders Last 24 Hours: My Active Orders 09/15/17 03:20 Vaccines to be Administered [RC] PER UNIT ROUTINE - Assessment/Plan Last 24 Hours: My Active Orders 09/15/17 03:20 Vaccines to be Administered [RC] PER UNIT ROUTINE Assessment:: 1. laceration Plan: 1. wound cleaning and repair completed 2. 11 hakan placed 3. Tdap updated 4. Wound dressing applied 5. Education regarding wound care, dressing, activity, diet, and follow up care provided.
== END 2017-09-15 03:35 | disposition home or self-care (01) ==
LOC: VM.ED 03:02
DX: S01.01XA Laceration without foreign body of scalp, initial encounter (principal); Z87.891 Personal history of nicotine dependence; Z23 Encounter for immunization; V86.99XA Unspecified occupant of other special all-terrain or other off-road motor vehicle injured in nontraffic accident, initial encounter
CPT/HCPCS: 12002; 90471; 90715; 99283

== ENCOUNTER 2019-07-02 13:05 | Emergency (ER) | payer MEDICARE, OTHER ==
[2019-07-02 13:51] VITALS: BP 196/103; PULSE 90
--- NOTE | 2019-07-02 14:05 | EDM.PDOC ---
ED HPI GENERAL MEDICAL PROBLEM - General Chief Complaint: Lower Extremity Injury/Pain Stated Complaint: LEFT FOOT ISSUE Time Seen by Provider: 07/02/19 13:53 Source of Information: Reports: Patient - History of Present Illness INITIAL COMMENTS - FREE TEXT/NARRATIVE: Dustin is a 69 y/o male who comes to the ER to be seen for a red swollen area on the inner aspect of his left foot. Denies any injury, but [id number] he may have had gout so he tried some OTC gout med. Denies pain in the region unless he tries to put on his slipper. No fevers. Never had this before. He does not have a PCP so came to the ER to be seen. - Related Data Allergies Allergy/AdvReac Type Severity Reaction Status Date / Time No Known Allergies Allergy Verified 07/02/19 13:53 Home Meds: Home Meds Multivitamin [Daily Multiple Vitamin] 1 tab PO DAILY 04/22/16 [History] Cephalexin [Keflex] 500 mg PO TID 7 Days #21 capsule 07/02/19 [Rx] Hydrocodone/Acetaminophen [Hydrocodon-Acetaminophen 5-325] 2 each PO Q6H 5 Days #20 tablet 07/02/19 [Rx] Past Medical History - Past Health History Medical/Surgical History: Denies Medical/Surgical History Musculoskeletal History: Reports: Gout Psychiatric History: Reports: Addiction - Past Surgical History HEENT Surgical History: Reports: Other (See Below) Social & Family History - Family History Family Medical History: Noncontributory - Tobacco Use Smoking Status *Q: Unknown Ever Smoked - Caffeine Use Caffeine Use: Reports: Coffee - Recreational Drug Use Recreational Drug Use: No Review of Systems - Review of Systems Review Of Systems: See Below Constitutional: Reports: No Symptoms Eyes: Reports: No Symptoms Ears: Reports: No Symptoms Nose: Reports: No Symptoms Mouth/Throat: Reports: No Symptoms Respiratory: Reports: No Symptoms Cardiovascular: Reports: No Symptoms GI/Abdominal: Reports: No Symptoms Genitourinary: Reports: No Symptoms Musculoskeletal: Reports: Foot Pain, Joint Swelling (left great toe) Skin: Reports: No Symptoms Neurological: Reports: No Symptoms Psychiatric: Reports: No Symptoms ED EXAM, GENERAL - Physical Exam Exam: See Below General Appearance: Alert, WD/WN, No Apparent Distress (Adult male.) Ears: Hearing Grossly Normal Nose: Normal Inspection Throat/Mouth: Normal Teeth, Normal Voice Head: Atraumatic, Normocephalic Neck: Normal Inspection Respiratory/Chest: No Respiratory Distress Cardiovascular: Other (Not examined) GI/Abdominal: Soft (Male) Exam: Deferred Rectal (Males) Exam: Deferred Back Exam: Other (Not examined) Extremities: No Pedal Edema (Note firm erythematous mass along the medial aspect of the left foot at the base of great left toe, has black area in the central region, no active drainage, but appears to have white drainage under the skin, but cannto express any with gentle), Normal Capillary Refill, Other Neurological: Alert, Oriented, CN II-XII Intact, Memory Loss Remote Events Psychiatric: Normal Affect, Normal Mood Skin Exam: Warm, Dry, Intact, Normal Color Lymphatic: No Adenopathy ED TRAUMA EXTREMITY PROCEDURES - I&D Site: Medial Aspect Left Great Toe Skin Prep: Providone-Iodine (Betadine) Local Anesthesia: Lidocaine: 1% Plain Local Anesthetic Volume: 2cc Area Incised With: 11 Blade Drainage: Large Amount, Other (thick white grainy material) Probed to Break Up Loculations: Yes Packed With: 1/4 in. Iodoform Sterile Dressinx4(s), Other (micah and [place]) Complications: Yes Complication Description: Area in question appeared to initially be a small abscess and then after incision was done, it was apparent that the region was more of a ganglion type cyst. Attempted to removed as much of the materail as possible and flush the wound with saline. Progress/Comments: Patient tolerate procedure well. Course - Vital Signs Text/Narrative:: 1400 The patient was seen by the [facility] [employer] [facility]. Labs and xray ordered. He was not having pain at this time and no pain meds ordered. 1455 Labs reviewed and negative. XRay of left foot negative for Osteo, appears to be an abscess. 1500 I&D Done, see Procedure note. 1515 Following procedure discussed with patient that this may be more of a ganglion cyst and require Ortho or Podiatry referral if the area does not heal well. Will place patient on a course of oral antibiotics. Pain meds prescribed. He was given discharge instructions and sent home in stable condition. Last Recorded V/S: Last Vital Signs Temp 36.8 C 07/02/19 13:45 Pulse 90 07/02/19 13:45 Resp 18 07/02/19 13:45 BP 196/103 H 07/02/19 13:45 Pulse Ox 95 07/02/19 13:45 - Orders/Labs/Meds Labs: Laboratory Tests 07/02/19 07/02/19 07/02/19 Range/Units 14:05 14:05 14:05 WBC 6.7 (4.0-10.0) x10^3/uL RBC 4.67 (4.5-6.0) x10^6/uL Hgb 14.8 (14.0-18.0) g/dL Hct 43.4 (40.0-52.0) % MCV 92.9 (78.0-93.0) fL MCH 31.7 (26.0-32.0) pg MCHC 34.1 (32.0-36.0) g/dL RDW Coeff of Natanale 13.5 (10.0-15.0) % Plt Count 142 (130-400) x10^3/uL Neut % (Auto) 65.6 (50.0-80.0) % Lymph % (Auto) 22.2 L (25.0-50.0) % [place] % (Auto) 9.7 (2.0-11.0) % Eos % (Auto) 1.9 (0.0-4.0) % Baso % (Auto) 0.6 (0.2-1.2) % Sodium 140 (136-145) mmol/L Potassium 4.4 (3.5-5.1) mmol/L Chloride 102 (98-107) mmol/L Carbon Dioxide 28 (21-32) mmol/L Anion Gap 14.4 (10-20) mmol/L BUN 17 (7-18) mg/dL Creatinine 0.8 (0.70-1.30) mg/dL Est Cr Clr Drug Dosing TNP Estimated GFR (MDRD) > 60 Glucose 99 (74-106) mg/dL Uric Acid 7.4 H (3.5-7.2) mg/dL Calcium 9.2 (8.5-10.1) mg/dL Meds: Medications Discontinued Medications Generic Name Dose Route Start Last Admin Trade Name Freq PRN Reason Stop Dose Admin Lidocaine HCl 5 ml 07/02/19 14:41 07/02/19 14:47 Xylocaine-Mpf 1% INJECT 07/02/19 14:42 5 ml ONETIME ONE Administration - Radiology Interpretation Free Text/Narrative:: XR Left Foot 2v-note large bunion Departure - Departure Time of Disposition: 15:20 Disposition: Home, Self-Care 01 Condition: Good Clinical Impression: Ganglion cyst of left foot - Discharge Information *PRESCRIPTION DRUG MONITORING PROGRAM REVIEWED*: No *COPY OF PRESCRIPTION DRUG MONITORING REPORT IN PATIENT [place]: No Prescriptions: Cephalexin [Keflex] 500 mg PO TID 7 Days #21 capsule Hydrocodone/Acetaminophen [Hydrocodon-Acetaminophen 5-325] 2 each PO Q6H 5 Days #20 tablet Instructions: Ganglion Cyst Referrals: PCP,None [Primary Care Provider] - Forms: ED Department Discharge Additional Instructions: -Keep wound clean and dry. Wash daily with soap and water. -Cephalexin 500mg oral 3x daily for 7 days #21 (Rx) -Hydrocodone/APAP 5/325mg 2 tabs oral very 6 hours as needed for severe pain #20 (Rx) -May also use over the counter ibuprofen along with the pain meds -Establish care with a PCP to have wound rechecked in 7-10 days. -If the wound is not healing you may need to see Podiatry or Ortho for consultation -Return to the ER as needed. Sepsis Event Note - Evaluation Sepsis Screening Result: No Definite Risk - Focused Exam Vital Signs: Vital Signs Temp Pulse Resp BP Pulse Ox 07/02/19 13:45 36.8 C 90 18 196/103 H 95 Date Exam was Performed: 07/02/19 Time Exam was Performed: 15:12
[2019-07-02 14:28] LABS: CHLORIDE,CL 102 mmol/L (98-107); SODIUM,NA 140 mmol/L (136-145)
[2019-07-02 14:36] LABS: ANION GAP 14.4 mmol/L (10-20)
--- NOTE | 2019-07-02 14:50 | CR ---
[id number] RAD/RAD Foot Left 2V Exam: RAD Foot Left 2V Indication:SWELLING ON BASE OF LEFT GREAT TOE. Comparison: No prior imaging for comparison. Discussion: Hallux valgus with moderate first MTP osteoarthritis. Lateral subluxation of the hallux sesamoid bones. Soft tissue prominence along the medial aspect of the first digit MTP joint. Findings are consistent with a bunion. Osteoarthritis elsewhere in the foot. Lateral view demonstrates Achilles tendon and plantar fascia enthesopathy at their calcaneal attachments. Impression: Hallux valgus with moderate first MTP osteoarthritis and a large bunion. Clement Patino MD 07/02/19 [id number] Thank you for allowing us to participate in the care of your patient.
== END 2019-07-02 15:31 | disposition home or self-care (01) ==
LOC: VM.ED 13:05
DX: M67.472 Ganglion, left ankle and foot (principal); L02.612 Cutaneous abscess of left foot
CPT/HCPCS: 10060; 10061; 36415; 73620; 80048; 84550; 85025; 99283; J2001

== ENCOUNTER 2019-07-25 12:14 | Emergency (ER) | payer MEDICARE ==
[2019-07-25 12:40] VITALS: BP 174/82; PULSE 99
[2019-07-25 13:14] LABS: CHLORIDE,CL 102 mmol/L (98-107); SODIUM,NA 142 mmol/L (136-145)
[2019-07-25 13:18] LABS: ANION GAP 13.5 mmol/L (10-20)
[2019-07-25] MEDS ORDERED: ceFAZolin 1 GM Vial IM ONE (14:21)
--- NOTE | 2019-07-29 05:13 | EDM.PDOC ---
ED HPI GENERAL MEDICAL PROBLEM - General Chief Complaint: Lower Extremity Injury/Pain Stated Complaint: SWOLLEN FOOT Time Seen by Provider: 07/25/19 14:20 Source of Information: Reports: Patient History Limitations: Reports: No Limitations - History of Present Illness INITIAL COMMENTS - FREE TEXT/NARRATIVE: Pt. presents to ER with complaints of pain/swelling to L great toe. Pt. was seen in the ER by Kelly Scott and underwent I and D of what sounds like a small abscess to the area. Pt. was started on keflex for 7 days. Pt. states that the discomfort and swelling had improved significantly. He states that approx. 2 days after stopping the antibiotic, he developed increased swelling to the area. He states that there is still some minimal drainage to the area. Denies any fever or chills. No cough. No chest pain or shortness of breath. He states that the area around the lesion is more edematous and painful to the touch. Onset Date: 07/25/19 Location: Reports: Lower Extremity, Left Improves with: Reports: Rest Worsens with: Reports: Movement Associated Symptoms: Denies: Fever/Chills Left Foot Pain Score (Numeric/FACES): 10 - Related Data Allergies Allergy/AdvReac Type Severity Reaction Status Date / Time No Known Allergies Allergy Verified 07/25/19 12:34 Home Meds: Home Meds Multivitamin [Daily Multiple Vitamin] 1 tab PO DAILY 04/22/16 [History] Past Medical History - Past Health History Medical/Surgical History: Denies Medical/Surgical History Musculoskeletal History: Reports: Gout Psychiatric History: Reports: Addiction - Past Surgical History HEENT Surgical History: Reports: Other (See Below) Social & Family History - Family History Family Medical History: Noncontributory - Tobacco Use Smoking Status *Q: Unknown Ever Smoked - Caffeine Use Caffeine Use: Reports: Coffee ED ROS GENERAL - Review of Systems Review Of Systems: See Below Musculoskeletal: Reports: Foot Pain Skin: Reports: No Symptoms Neurological: Reports: No Symptoms ED EXAM, GENERAL - Physical Exam Exam: See Below Extremities: Other (Bunion with evidence of recent incision and drainage to great toe. Some localized cellulitis immediately surrounding the bunion/to the area of top of foot. No wide spread celluitis or streaking. Area is exquisitely tender to movement/palpation. ) Course - Vital Signs Last Recorded V/S: Last Vital Signs Temp 36.6 C 07/25/19 12:18 Pulse 99 07/25/19 12:18 Resp 20 07/25/19 12:18 BP 174/82 H 07/25/19 12:18 Pulse Ox 96 07/25/19 12:18 - Orders/Labs/Meds Labs: Laboratory Tests 07/25/19 07/25/19 07/25/19 Range/Units 12:45 12:45 12:45 WBC 10.6 H (4.0-10.0) x10^3/uL RBC 4.55 (4.5-6.0) x10^6/uL Hgb 14.3 (14.0-18.0) g/dL Hct 42.4 (40.0-52.0) % MCV 93.2 H (78.0-93.0) fL MCH 31.4 (26.0-32.0) pg MCHC 33.7 (32.0-36.0) g/dL RDW Coeff of Natanael 13.5 (10.0-15.0) % Plt Count 141 (130-400) x10^3/uL Neut % (Auto) 77.1 (50.0-80.0) % Lymph % (Auto) 11.9 L (25.0-50.0) % [place] % (Auto) 9.7 (2.0-11.0) % Eos % (Auto) 1.0 (0.0-4.0) % Baso % (Auto) 0.3 (0.2-1.2) % PT 10.6 (10.0-12.8) SEC INR 0.9 L (2.0-3.5) Sodium 142 (136-145) mmol/L Potassium 4.5 (3.5-5.1) mmol/L Chloride 102 (98-107) mmol/L Carbon Dioxide 31 (21-32) mmol/L Anion Gap 13.5 (10-20) mmol/L BUN 20 H (7-18) mg/dL Creatinine 0.7 (0.70-1.30) mg/dL Est Cr Clr Drug Dosing TNP Estimated GFR (MDRD) > 60 Glucose 111 H (74-106) mg/dL Calcium 9.4 (8.5-10.1) mg/dL Corrected Calcium 9.16 (8.5-10.1) mg/dL Total Bilirubin 0.7 (0.2-1.0) mg/dL AST 23 (15-37) U/L ALT 43 (16-63) U/L Alkaline Phosphatase 79 (46-116) U/L C-Reactive Protein 6.4 H (<=0.9) mg/dL Total Protein 7.7 (6.4-8.2) g/dL Albumin 4.3 (3.4-5.0) g/dL Globulin 3.4 Albumin/Globulin Ratio 1.26 Meds: Medications Discontinued Medications Generic Name Dose Route Start Last Admin Trade Name Reganq PRN Reason Stop Dose Admin Cefazolin Sodium 1 gm 07/25/19 14:21 07/25/19 14:45 Ancef IM 07/25/19 14:22 1 gm ONETIME ONE Administration Departure - Departure Time of Disposition: 13:30 Disposition: Home, Self-Care 01 Clinical Impression: Cellulitis and abscess of foot - Discharge Information Instructions: Acetaminophen; Hydrocodone tablets or capsules, Cellulitis, Adult , Cephalexin tablets or capsules, Probiotics Referrals: PCP,None [Primary Care Provider] - Forms: ED Department Discharge Additional Instructions: Use post op shoe Keflex 500mg 1 tab 4 times per day for 10 days [place] 5/325mg 1 every 4-6 hours as needed for pain Follow-up at [facility] on Jul.27 at 1:30 PM Address is [address] [place] [address]. Return to ER (either here or in [facility] ER) if you have significant swelling, fever or chills Sepsis Event Note - Evaluation Sepsis Screening Result: No Definite Risk - Focused Exam Date Exam was Performed: 07/29/19 Time Exam was Performed: 05:19 - Assessment/Plan Plan: Follow-up arranged with [facility]. Radiographs from previous visit did not show any sign of fracture or osteomyelitis. Pt. was given a gram of ancef IM. Will restart keflex 500mg QID as he was improving with this. He was also given a short course of norco as needed for pain. He was also placed in a post op shoe. Return if increased swelling, discharge, fever or chills. All questions were answered.
== END 2019-07-25 15:00 | disposition home or self-care (01) ==
LOC: VM.ED 12:14
DX: L03.116 Cellulitis of left lower limb (principal); L02.612 Cutaneous abscess of left foot
CPT/HCPCS: 36415; 80053; 85025; 85610; 86140; 99283; J0690; 96372